=== PATIENT | male | born 1960 | race Caucasian/White ===

== ENCOUNTER 2021-02-07 13:07 | Emergency (ER) | payer SELFPAY ==
[~2021-02-07] VITALS: Ht 175.3 cm; Wt 79.0 kg
--- NOTE | 2021-02-07 14:05 | NUR ---
Pt to room from ambulance wall. Pt c/o palpitations and dizziness since 0900 this morning. Pt reports dizziness improved while lying down and resting. Pt denies pain or other complaint. Pt placed in gown, positioned for comfort in bed with blanket. EKG completed, continuous heart, oxygen and BP monitors applied, all safety measures observed.
[2021-02-07] MEDS ORDERED: ASPI81TA45 PO (14:11)
--- NOTE | 2021-02-07 14:44 | NUR ---
Dr. Flores at bedside to evaluate pt.
[2021-02-07] MEDS ORDERED: SODIUM CHLORIDE FLUSH 10ML SYR IVF ONE (15:00)
--- NOTE | 2021-02-07 15:03 | NUR ---
Pt resting in bed, reports palpitations and dizziness have resolved. Pt denies other needs.
[2021-02-07 15:14] LABS: BASOPHILS % (AUTO) 0 % (0-1); EOSINOPHILS % (AUTO) 1 % (1-7); LYMPHOCYTES % (AUTO) 33 % (22-44); MEAN CORPUSCULAR HGB CONC 34.3 g/dL (33.2-36.2); MEAN PLATELET VOLUME 8.4 fL (7.4-10.4); MONOCYTES % (AUTO) 9 % (2-9); NEUTROPHILS % (AUTO) 57 % (42-75); PLATELET COUNT 205 x10^3/uL (130-400); RED BLOOD COUNT 4.85 x10^6/uL (4.38-5.82); RED CELL DISTRIBUTION WIDTH 12.9 % (9.4-14.8)
[2021-02-07 15:21] LABS: ALANINE AMINOTRANSFERASE 19 U/L (12-78); ALBUMIN 3.4 g/dL (3.4-5.0); ANION GAP 8 mmol/L (5-15); CALCIUM 9.3 mg/dL (8.5-10.1); CHLORIDE 108 mmol/L (98-107); CREATININE 0.89 mg/dL (0.7-1.3)
[2021-02-07 15:25] LABS: ALKALINE PHOSPHATASE 62 U/L (45-117); BILIRUBIN,TOTAL 0.8 mg/dL (0.2-1.0); TOTAL PROTEIN 6.8 g/dL (6.4-8.2); TROPONIN I < 0.015 ng/mL (0.000-0.045)
--- NOTE | 2021-02-07 16:00 | NUR ---
REPORT FROM LEV, ASSUME CARE OF PT AT THIS TIME.
[2021-02-07 16:09] VITALS: BP 143/87
== END 2021-02-07 17:20 | disposition home or self-care (01) ==
LOC: ED 14:00
DX: R00.2 Palpitations (principal); R42 Dizziness and giddiness; R00.1 Bradycardia, unspecified; F17.200 Nicotine dependence, unspecified, uncomplicated
CPT/HCPCS: 36415; 71045; 80053; 84484; 85025; 93005; 99285